=== PATIENT | female | born 2000 | race Caucasian/White ===

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

== ENCOUNTER 2019-09-26 21:32 | Emergency (ER) | payer MEDICAID ==
[2019-09-26] MEDS ORDERED: NORMAL SALINE 1000 ML 1,000 ML IV ONE (22:13)
[2019-09-26] MEDS ORDERED: ONDANSETRON 4 MG TAB.RAPDIS PO ONE (22:13)
--- NOTE | 2019-09-26 22:15 | ER Document Report ---
ED Medical Screen (RME) - General Stated Complaint: STOMACH PAIN,NAUSEA,VOMITING Time Seen by Provider: 09/26/19 22:07 Primary Care Provider: RUFINO VARGAS DO [Primary Care Provider] - Follow up as needed Notes: 19-year-old female with chief complaint of mid to upper abdominal pain and vomiting. She states she overdosed intentionally on Tuesday night with about 20 tablets of 50 mg tramadol, about 10 tablets of her prescribed Effexor, and a large quantity of caffeine pills. She states that obviously this did not work, she states she is relieved that it did not work, she states she is not suicidal tonight but she started having abdominal pain yesterday, this worsened today and she is vomited multiple times. She denies fever, abnormal bowel movements. She denies abdominal surgeries. TRAVEL OUTSIDE OF THE [place] IN LAST 30 DAYS: No - Related Data Allergies/Adverse Reactions: No Known Allergies Allergy (Unverified 09/26/19 21:59) Physical Exam - Vital signs Vitals: Temp Pulse Resp BP Pulse Ox 99.0 F 108 H 20 144/100 H 97 09/26/19 21:36 09/26/19 21:36 09/26/19 21:36 09/26/19 21:36 09/26/19 21:36 - General General appearance: Other - Patient appears mildly uncomfortable - Abdominal Tenderness: Tender - Tender in the left upper quadrant, epigastric area, and mid abdomen. Lower abdomen benign, exam limited by sitting position Course - Re-evaluation Re-evalutation: I have greeted and performed a rapid initial assessment of this patient. A comprehensive ED assessment and evaluation of the patient, analysis of test results and completion of the medical decision making process will be conducted by additional ED providers. - Vital Signs Vital signs: Temp Pulse Resp BP Pulse Ox 99.0 F 108 H 20 144/100 H 97 09/26/19 21:36 09/26/19 21:36 09/26/19 21:36 09/26/19 21:36 09/26/19 21:36 Doctor's Discharge - Discharge Referrals: RUFINO VARGAS DO [Primary Care Provider] - Follow up as needed
[2019-09-26 23:17] LABS: APPEARANCE,URINE CLOUDY; BILIRUBIN,URINE NEGATIVE (NEGATIVE); COLOR,URINE YELLOW; GLUCOSE, URINE NEGATIVE (NEGATIVE); KETONES,URINE NEGATIVE (NEGATIVE); LEUKOCYTE ESTERASE,URINE SMALL (NEGATIVE); NITRITE,URINE NEGATIVE (NEGATIVE); PROTEIN,URINE NEGATIVE (NEGATIVE); URINE SPECIFIC GRAVITY 1.016; UROBILINOGEN,URINE NEGATIVE mg/dL (<2.0)
[2019-09-26 23:22] LABS: ABSOLUTE EOSINOPHILS # (AUTO) 0.1 10^3/uL (0.0-0.6); ABSOLUTE LYMPHOCYTES (AUTO) 2.5 10^3/uL (0.5-4.7); ABSOLUTE MONOCYTES (AUTO) 0.6 10^3/uL (0.1-1.4); ABSOLUTE NEUT (AUTO) 9.8 10^3/uL (1.7-8.2); BASOPHILS % (AUTO) 0.4 % (0-2); EOSINOPHILS % (AUTO) 0.4 % (0-6); HEMATOCRIT 40.4 % (36.0-47.0); HEMOGLOBIN 13.8 g/dL (12.0-15.5); MEAN CORPUSCULAR HEMOGLOBIN 29.7 pg (27.0-33.4); MEAN CORPUSCULAR HGB CONC 34.1 g/dL (32.0-36.0); MEAN CORPUSCULAR VOLUME 87 fl (80-97); MONOCYTES % (AUTO) 4.6 % (3-13); PLATELET COUNT 316 10^3/uL (150-450); RED BLOOD COUNT 4.62 10^6/uL (3.72-5.28); RED CELL DISTRIBUTION WIDTH 13.3 % (11.5-14.0); SEGMENTED NEUTROPHILS % (AUTO) 75.6 % (42-78); TOTAL CELLS COUNTED % (AUTO) 100 %; WHITE BLOOD COUNT 12.9 10^3/uL (4.0-10.5)
[2019-09-26 23:38] LABS: ALBUMIN 4.7 g/dL (3.5-5.0); ALKALINE PHOSPHATASE 131 U/L (38-126); ANION GAP 10 (5-19); ASPARTATE AMINO TRANSFERASE 51 U/L (14-36); BILIRUBIN,TOTAL 0.3 mg/dL (0.2-1.3); BLOOD UREA NITROGEN 3 mg/dL (7-20); CALCIUM 9.9 mg/dL (8.4-10.2); CARBON DIOXIDE 24 mmol/L (22-30); CHLORIDE 108 mmol/L (98-107); GLUCOSE 104 mg/dL (75-110); POTASSIUM 4.1 mmol/L (3.6-5.0); TOTAL PROTEIN 7.7 g/dL (6.3-8.2)
[2019-09-26 23:39] LABS: ALCOHOL < 10 mg/dL (NONE DETECTED)
[2019-09-26 23:46] LABS: URINE AMPHETAMINES SCREEN NEGATIVE; URINE BENZODIAZEPINES SCREEN NEGATIVE; URINE COCAINE SCREEN NEGATIVE; URINE MARIJUANA (THC) SCREEN NEGATIVE; URINE METHADONE SCREEN NEGATIVE; URINE PHENCYCLIDINE SCREEN NEGATIVE
[2019-09-26 23:48] LABS: URINE BARBITURATES SCREEN UNCONFIRMED POSITIVE
[2019-09-27] MEDS ORDERED: ONDANSETRON HCL INJ/PF 4 MG/2 ML SDV IV ONE (01:28)
[2019-09-27] MEDS ORDERED: NORMAL SALINE 1000 ML 1,000 ML IV ONE (01:28)
[2019-09-27] MEDS ORDERED: ACETAMINOPHEN 325 MG TABLET PO ONE (02:51)
--- NOTE | 2019-09-27 03:19 | ER Document Report ---
ED General - General Chief Complaint: Overdose Stated Complaint: STOMACH PAIN,NAUSEA,VOMITING Time Seen by Provider: 09/26/19 22:07 Primary Care Provider: RUFINO VARGAS DO [Primary Care Provider] - Follow up as needed TRAVEL OUTSIDE OF THE [place] IN LAST 30 DAYS: No - HPI Notes: Patient is a 19-year-old female who presents to the emergency department for evaluation. She states that sometime earlier this week, she believes Tuesday or Tuesday, she tried to overdose on pills and an attempted suicide. She admits to taking 2050 mg Ultram, 10 Effexor 150 mg, approximately 13 caffeine tablets, and one other unknown medication. These were all of her grandmothers. She states that she was attempting to commit suicide at that time, but it is glad she was unsuccessful at this time. She denies any suicidal or homicidal ideations at this time. She is not having any auditory or visual hallucinations. She is here today because over the last 24 hours she has developed some diffuse abdominal pain as well as nausea and vomiting. She had a normal bowel movement just prior to arrival. No fevers or chills. No urinary symptoms. She does have a history of cutting. She admits she is run out of her Effexor several weeks ago, has not followed up with her doctor. She is never had a psychiatric hospitalization. She does not currently see a therapist. She states that she became overwhelmingly sad secondary to the of her grandmother which happened back in May. Currently she lives with her grandfather, and it sounds as if their relationship is trying. She also notes that other family members, including cousins and an aunt, have moved in recently. - Related Data Allergies/Adverse Reactions: No Known Allergies Allergy (Unverified 09/26/19 21:59) Home Medications: Effexor XR 37.5 mg BID -out of meds for weeks Past Medical History - General Information source: Patient - Social History Smoking Status: Current Every Day Smoker Frequency of alcohol use: None Drug Abuse: None Family History: Reviewed & Not Pertinent Patient has suicidal ideation: Yes Patient has homicidal ideation: No Psychiatric Medical History: Reports: Hx Depression Review of Systems - Review of Systems Gastrointestinal: See HPI Neurological/Psychological: See HPI -: Yes All other systems reviewed and negative Physical Exam - Vital signs Vitals: Temp Pulse Resp BP Pulse Ox 99.0 F 108 H 20 144/100 H 97 09/26/19 21:36 09/26/19 21:36 09/26/19 21:36 09/26/19 21:36 09/26/19 21:36 - Notes Notes: Vital signs reviewed, please refer to chart. Head is normocephalic, atraumatic. Pupils equal round, reactive to light. Neck is supple without meningismus. Heart is regular rate and rhythm. Lungs are clear to auscultation bilaterally. Abdomen is soft, nontender, normoactive bowel sounds throughout. Extremities without cyanosis, clubbing. Posterior calves are nontender. Peripheral pulses are equal. Skin is warm and dry. She has well-healed linear scars on bilateral forearms secondary to previous history of cutting. Patient is awake, alert, neurological exam is nonfocal. She makes good eye contact, is cooperative with examiner. Course - Re-evaluation Re-evalutation: 09/27/19 03:18 Patie is mildly obese, and has been vomiting, which is the likely attributable cause for this mild LFT elevation. Nt presents to the emergency department for evaluation. She is complaining of abdominal pain, nausea, vomiting, all of this after a suicide attempt several days ago. She denies being suicidal at this time. Her laboratory investigations are largely unremarkable. She has a very mild elevation in her LFTs, but she has no right upper quadrant tenderness. She is treated with IV fluids, Zofran. At this time she is no longer vomiting, and is considered medically cleared. She is not actively suicidal, but would be agreeable to therapy, is agreeable to speaking to the psychosocial team in the morning. She is agreeable to restarting medications if this is deemed appropriate as well. Patient is medically cleared, will stay voluntarily awaiting psychosocial evaluation. - Vital Signs Vital signs: Temp Pulse Resp BP Pulse Ox 99.0 F 108 H 20 144/100 H 97 09/26/19 21:36 09/26/19 21:36 09/26/19 21:36 09/26/19 21:36 09/26/19 21:36 - Laboratory Result Diagrams: 09/26/19 22:49 09/26/19 22:49 Laboratory results interpreted by me: 09/26/19 09/26/19 09/26/19 22:49 22:49 22:49 WBC 12.9 H Absolute Neuts (auto) 9.8 H Chloride 108 H BUN 3 L AST 51 H ALT 59 H Alkaline Phosphatase 131 H Lipase 21.3 L Ur Leukocyte Esterase SMALL H - EKG Interpretation by Me Additional EKG results interpreted by me: 09/27/19 03:19 Sinus mechanism with rate of 98 bpm. Normal axis and intervals. No acute ST changes concerning for ischemia or infarction. Discharge - Discharge Clinical Impression: Suicide attempt, Generalized abdominal pain, Nausea and vomiting, Elevated LFTs Condition: Stable Disposition: OTHER Instructions: Abdominal Pain ([facility]), Vomiting ([facility]), Liver Function Abnormality ([facility]) Additional Instructions: Small, frequent sips of fluids. Zofran as needed for severe vomiting. There is a very mild elevation in your liver function testing here today. This should be rechecked by your primary care provider. Return to the emergency department for worsening or new concerning symptoms of any sort. Prescriptions: Ondansetron [Zofran Odt 4 mg Tablet] 1 tab PO Q4H PRN #15 tab.rapdis PRN Reason: For Nausea/Vomiting Referrals: RUFINO VARGAS DO [Primary Care Provider] - Follow up as needed
[2019-09-27] MEDS ORDERED: ONDANSETRON 4 MG TAB.RAPDIS PO PRN (05:55)
--- NOTE | 2019-09-27 07:22 | EKG REPORT ---
SEVERITY:- BORDERLINE ECG - SINUS RHYTHM PROBABLE LEFT ATRIAL ABNORMALITY : Confirmed by: Herman Velázquez MD 27-Sep-2019 07:21:41
[2019-09-27] MEDS ORDERED: VENLAFAXINE HCL 37.5 MG CAP.SR.24H PO ONE (09:37)
[2019-09-27] MEDS ORDERED: BUSPIRONE HCL 10 MG TABLET PO ONE (09:37)
--- NOTE | 2019-09-27 09:40 | ER Document Report ---
Doctor's Note Notes: 09/27/19 09:39 Patient's vital signs and previous labs, diagnostic images reviewed. Reviewed mental health notes, nurse's notes and previous providers notes. VSS. Pt is in no distress at this time. Denies any SI or HI. mental health at bedside. she is medically cleared. She has appt at [facility] at 10 am on 09/28/19 at 10 am. General: A&Ox3. Answers questions appropriately. Heart: RRR Lungs: CTAB Psych: Flat affect A/P: Continue monitoring and rec's per MH. Normal diet will be discharged.
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
[2019-09-27 10:37] VITALS: BP 140/86
== END 2019-09-27 10:37 | disposition home or self-care (01) ==
LOC: ER 21:32
DX: T40.4X2A Poisoning by other synthetic narcotics, intentional self-harm, initial encounter (principal); T43.212A Poisoning by selective serotonin and norepinephrine reuptake inhibitors, intentional self-harm, initial encounter; T43.612A Poisoning by caffeine, intentional self-harm, initial encounter; T50.902A Poisoning by unspecified drugs, medicaments and biological substances, intentional self-harm, initial encounter; R10.84 Generalized abdominal pain; R11.2 Nausea with vomiting, unspecified; R79.89 Other specified abnormal findings of blood chemistry; F17.200 Nicotine dependence, unspecified, uncomplicated; Z63.4 Disappearance and death of family member
CPT/HCPCS: 93005; 99285; 96361; 96374; 36415; 80307 ×2; 83690; 85025; 81025; 80053; 81001; 93010; J3490 ×3; S0119 ×2; J2405; J7030